=== PATIENT | male | born 1990 | race Two or more races ===

== ENCOUNTER 2017-10-27 22:58 | Emergency (ER) | payer SELFPAY ==
[~2017-10-27] VITALS: Ht 170.2 cm; Wt 74.8 kg
[2017-10-27 23:07] VITALS: BP 124/92
== END 2017-10-28 02:14 | disposition home or self-care (01) ==
LOC: ER 23:02
DX: F12.10 Cannabis abuse, uncomplicated (principal)

== ENCOUNTER 2018-06-30 22:21 | Emergency (ER) | payer MEDICAID ==
[~2018-06-30] VITALS: Ht 170.2 cm; Wt 74.8 kg
[2018-06-30 23:19] VITALS: BP 116/71
[2018-06-30 23:50] LABS: Urine Bacteria MANY /hpf (None Seen); Urine Blood 2+ /uL (Negative); Urine Mucus FEW (None Seen); Urine WBC 2727 /hpf (0 - 3); Urine WBC Clumps PRESENT /hpf (None Seen)
[2018-06-30 23:51] LABS: Urine Specific Gravity 1.032 (1.001-1.035)
[2018-07-01 00:01] LABS: Basophils # (auto) 0.1 uL; Basophils % (auto) 0.6 % (0.0-2.0); Eosinophils # (auto) 0.4 uL; Hematocrit 42.3 % (41.0-53.0); Hemoglobin 14.8 g/dL (13.5-17.5); Lymphocytes % (auto) 10.5 % (10.0-50.0); Mean Corpuscular Hemoglobin 31.1 pg (28.0-32.0); Mean Corpuscular Volume 88.9 fL (80.0-100.0); Monocytes # (auto) 1.2 uL; Monocytes % (auto) 6.3 % (0.0-12.0); Neutrophils # (auto) 15.3 uL; Neutrophils % (auto) 80.6 % (37.0-80.0); Platelet Count (auto) 331 10^3/uL (140-450); Red Blood Cells 4.76 10^6/uL (4.5-5.90); Red Cell Distribution Width 12.9 % (11.8-14.3)
[2018-07-01 00:19] LABS: Albumin 3.5 g/dL (3.4-5.0); BUN/Creatinine Ratio 10.2; Calcium 8.4 mg/dL (8.5-10.1); Potassium 3.8 mmol/L (3.5-5.1)
[2018-07-01 00:22] LABS: Bilirubin, Total 0.7 mg/dL (0.2-1.0)
[2018-07-01] MEDS ORDERED: cefTRIAXone SOD 1,000 MG VL IM ONE (02:15)
[2018-07-01] MEDS ORDERED: KETOROLAC TROMETH 60MG/2ML VIAL IM ONE (02:15)
== END 2018-07-01 02:48 | disposition home or self-care (01) ==
LOC: ER 22:21
DX: N39.0 Urinary tract infection, site not specified (principal)
CPT/HCPCS: 36415; 80053; 81001; 85025; 96372; 99283; J0696; J1885